=== PATIENT | female | born 1985 | race Caucasian/White ===

== ENCOUNTER 2018-04-16 04:37 | Emergency (ER) | payer OTHER ==
[~2018-04-16] VITALS: Ht 160 cm; Wt 72.6 kg
[2018-04-16 04:44] VITALS: BP 112/76; Ht 160 cm; Wt 72.6 kg
== END 2018-04-16 05:36 | disposition left against medical advice (07) ==
LOC: ED 04:37
DX: R51 Headache (principal); M54.2 Cervicalgia; Y08.89XA Assault by other specified means, initial encounter

== ENCOUNTER 2018-11-18 16:46 | Emergency (ER) | payer OTHER | END 2018-11-18 18:20 | disposition left against medical advice (07) | LOC: ED 16:46 | DX: Z53.21 Procedure and treatment not carried out due to patient leaving prior to being seen by health care provider (principal) ==